=== PATIENT | male | born 1990 | race African-American/Black ===

== ENCOUNTER 2018-03-27 21:43 | Emergency (ER) | payer OTHER ==
[~2018-03-27] VITALS: Ht 185.4 cm; Wt 59.0 kg
[2018-03-27] MEDS ORDERED: ATIVAN0.5 MG PO (22:05)
[2018-03-27 23:07] VITALS: BP 129/78
== END 2018-03-27 23:09 | disposition home or self-care (01) ==
LOC: ER 21:43
DX: F41.0 Panic disorder [episodic paroxysmal anxiety] (principal); R20.2 Paresthesia of skin; F32.9 Major depressive disorder, single episode, unspecified